=== PATIENT | male | born 1975 ===

== ENCOUNTER 2021-11-16 19:19 | Inpatient (IN) | payer OTHER ==
[~2021-11-16] VITALS: Ht 180.3 cm; Wt 113.4 kg
--- NOTE | 2021-11-16 19:20 | NUR ---
Patient BIB [facility] c/o seizure x2 today. Patient has a hx of epilepsy. Last seizure episode was October 2018. Patient is A/Ox4, no SOB noted. Blood sugar was 92 per report
[2021-11-16] MEDS ORDERED: LEVE500T9 PO (19:27)
--- NOTE | 2021-11-16 19:51 | NUR ---
Patient is A/Ox4
[2021-11-16 20:00] LABS: HEMATOCRIT 38.9 % (36.7-47.1); MEAN CORPUSCULAR VOLUME 78.5 fL (73.0-96.2); PLATELET COUNT (AUTO) 231 K/uL (152-348)
[2021-11-16 20:05] LABS: BILIRUBIN,DIRECT 0.2 mg/dL (0.0-0.2); BILIRUBIN,TOTAL 0.7 mg/dL (0.2-1.0); CREATININE 0.9 mg/dL (0.6-1.3); TOTAL PROTEIN, SERUM 6.9 g/dL (6.4-8.2)
[2021-11-16] MEDS ORDERED: MAG HYDROX/AL HYDROX/SIMETH 30 ML LIQUID UDC PO ONE (20:15)
[2021-11-16] MEDS ORDERED: LIDOCAINE VISCUS 2% 15 ML UDC MM ONE (20:15)
[2021-11-16] MEDS: MAGNESIUM SULFATE/D5W 100 ML IV SCH ×4 (20:16→21:27)
[2021-11-16] MEDS ORDERED: MAG HYDROX/AL HYDROX/SIMETH 30 ML LIQUID UDC ONE (20:16)
[2021-11-16] MEDS ORDERED: LIDOCAINE VISCUS 2% 15 ML UDC ONE (20:16)
[2021-11-16] MEDS ORDERED: MAGNESIUM SULFATE/D5W 400 ML ONE (20:23)
[2021-11-16] MEDS ORDERED: IV NS 1000 ML 1,000 ML IV PRN (20:45)
[2021-11-16] MEDS ORDERED: levETIRAcetam 250 MG TABLET ONE (21:41)
[2021-11-16] MEDS ORDERED: DESMOPRESSIN NS SCH (21:45)
[2021-11-16] MEDS ORDERED: levETIRAcetam 250 MG TABLET PO ONE (21:45)
--- NOTE | 2021-11-16 22:50 | NUR ---
called [facility]. Dr Bowen giving report to Dr Prieto
[2021-11-16] MEDS ORDERED: DESM10SP2 NS (22:54)
[2021-11-16] MEDS ORDERED: FLUO20TA28 PO (23:04)
[2021-11-16] MEDS ORDERED: LISI10TA29 PO (23:04)
[2021-11-16] MEDS ORDERED: SIMV-46 PO (23:04)
[2021-11-16] MEDS ORDERED: PYRI-6 PO (23:04)
--- NOTE | 2021-11-16 23:29 | NUR ---
report given to Satinder
--- NOTE | 2021-11-16 23:30 | NUR ---
patient will go to TELE room 306
--- NOTE | 2021-11-16 23:38 | NUR ---
housekeeper nanny took patient upstairs in room 306 via wheelchair
--- NOTE | 2021-11-16 23:38 | NUR ---
Pt. admitted to Tele room 306 , under care of Dr. Prieto Belongs List completed
[2021-11-17] VITALS (7 sets, daily range): BP systolic 11–188; BP diastolic 67–80
[2021-11-17] MEDS ORDERED: IV NS 1000 ML 1,000 ML IV PRN
[2021-11-17] MEDS ORDERED: hydrALAZINE HCL 25 MG TABLET PO PRN
[2021-11-17] MEDS ORDERED: ZOLPIDEM 5 MG TABLET PO PRN
[2021-11-17] MEDS ORDERED: ONDANSETRON 4 MG/2 ML VIAL IV PRN
[2021-11-17] MEDS ORDERED: CALCIUM CARBONATE 500 MG TAB.CHEW PO PRN (00:15)
[2021-11-17] MEDS ORDERED: MAG HYDROX/AL HYDROX/SIMETH 30 ML LIQUID UDC PO PRN (00:15)
[2021-11-17] MEDS: ACETAMINOPHEN 325 MG TABLET PO PRN ×3 (00:43→19:07)
[2021-11-17] MEDS ORDERED: LORAZEPAM 2 MG/1 ML VIAL IV PRN (00:45)
[2021-11-17] MEDS: PANTOPRAZOLE SODIUM 40 MG TABLET.DR PO SCH (06:12)
[2021-11-17 06:30] LABS: HEMATOCRIT 36.5 % (36.7-47.1); MEAN CORPUSCULAR HEMOGLOBIN 29.5 uug (23.8-33.4); MEAN CORPUSCULAR VOLUME 78.1 fL (73.0-96.2); PLATELET COUNT (AUTO) 223 K/uL (152-348)
[2021-11-17 07:22] LABS: BILIRUBIN,TOTAL 0.7 mg/dL (0.2-1.0); CREATININE 0.8 mg/dL (0.6-1.3); MAGNESIUM 1.9 mg/dL (1.8-2.4); PHOSPHOROUS 3.1 mg/dL (2.5-4.9); POTASSIUM 3.7 mmol/L (3.5-5.1); TOTAL PROTEIN, SERUM 6.2 g/dL (6.4-8.2)
[2021-11-17] MEDS ORDERED: IV SODIUM CHLORIDE 3% 500 ML IV PRN ×2 (07:30→16:30)
--- NOTE | 2021-11-17 07:30 | NUR ---
Awake, alert, oriented x 4. Reports of headache. IVF Infusing. Tele SR.
[2021-11-17 08:21] LABS: THYROID STIMULATING HORMONE 1.701 mIU/mL (0.358-3.740)
--- NOTE | 2021-11-17 08:27 | NUR ---
Na 122; IVF changed to Sodium 3% as ordered. Tylenol given for headache.
[2021-11-17] MEDS ORDERED: levETIRAcetam 500 MG TABLET PO SCH (09:00)
--- NOTE | 2021-11-17 11:30 | NUR ---
Hospitalist seen and examined patient, explained plan of care
--- NOTE | 2021-11-17 14:00 | NUR ---
3% SODIUM CHLORIDE RATE INCREASED TO 35 ML. LATEST SODIUM 120.
[2021-11-17 15:20] LABS: CREATININE 0.9 mg/dL (0.6-1.3); POTASSIUM 3.8 mmol/L (3.5-5.1)
--- NOTE | 2021-11-17 15:35 | NUR ---
PATIENT HAD SEIZURE AT 1535 THAT LASTED 35-45 SECONDS. LORAZEPAM [address] IV PUSH. [address] JAHAIRA GEORGE.
--- NOTE | 2021-11-17 16:07 | NUR ---
neurologist informed of seizure episode with orders to adjust dose of Keppra. Will continue to monitor patient.
[2021-11-17 17:05] LABS: *CHLORIDE RNDM,URINE 121 mmol/L (100-250); *POTASSIUM RNDM,URINE 22 mmol/L (25-125)
--- NOTE | 2021-11-17 17:41 | NUR ---
PATIENT ALERT AND ORIENTED X4. EATING DINNER. NOT IN DISTRESS. TELE SR 75. SODIUM 3% AT 35ML PER HOUR INFUSING. SEIZURE PRECAUTIONS REINFORCED.
--- NOTE | 2021-11-17 19:58 | NUR ---
Received patient in bed with at bedside. AAOX4. Sinus Rhythm on tele with HR of 74bpm. IV access patent and intact running 3% at 35cc/hr. Seizure Precautions in placed. Will continue to monitor. Addendum: 11/18/21 at 2104 by RON SANTAMARIA RN running 3% Nacl at 35cc/hr.
[2021-11-17] MEDS: levETIRAcetam 500 MG TABLET PO SCH (20:11)
--- NOTE | 2021-11-17 20:30 | NUR ---
Patient's neurologist Dr. Post had requested for a Levetiracetam level draw, since normal dose of Keppra was increased from 500mg to 1500mg. Dr. Navarro notified and agreed to put in the order.
[2021-11-18 00:45] VITALS: BP 115/68
[2021-11-18 04:33] VITALS: BP 123/73
--- NOTE | 2021-11-18 05:36 | NUR ---
Patient slept through the night. No seizures noted. Seizure precautions maintained. Sinus rhythm with episodes of sinus angeles on telemonitor. No acute distress noted at this time. Will endorse to day shift.
[2021-11-18] MEDS: PANTOPRAZOLE SODIUM 40 MG TABLET.DR PO SCH (06:26)
[2021-11-18 06:44] LABS: MEAN CORPUSCULAR HEMOGLOBIN 29.2 uug (23.8-33.4); MEAN CORPUSCULAR VOLUME 79.8 fL (73.0-96.2); PLATELET COUNT (AUTO) 207 K/uL (152-348)
[2021-11-18 06:57] LABS: CREATININE 0.9 mg/dL (0.6-1.3); MAGNESIUM 1.8 mg/dL (1.8-2.4); PHOSPHOROUS 2.1 mg/dL (2.5-4.9); POTASSIUM 4.4 mmol/L (3.5-5.1); URIC ACID 4.3 mg/dL (3.5-7.2)
[2021-11-18 07:39] LABS: THYROID STIMULATING HORMONE 1.979 mIU/mL (0.358-3.740)
[2021-11-18] MEDS: levETIRAcetam 500 MG TABLET PO SCH ×2 (08:43→20:39)
[2021-11-18 11:18] VITALS: BP 133/85
--- NOTE | 2021-11-18 13:55 | NUR ---
RECEIVED A CALL FRON LETITIA DESIGN ENGINEERING TECHNICIAN STATED THAT DR LLOYD WANTS TO START PATIENT ON 3 PERCENT NS FOR 5 HOURS AND NOTED.
--- NOTE | 2021-11-18 14:00 | NUR ---
DR NIETO NEUROLOGIST HERE TO SEE AND VISIT PATIENT WITH NO NEW ORDERS AT THIS TIME.
[2021-11-18] MEDS ORDERED: IV SODIUM CHLORIDE 3% 500 ML IV PRN (15:00)
[2021-11-18] MEDS ORDERED: NEUTRA PHOS PACKET PO ONE (15:45)
[2021-11-18 15:53] VITALS: BP 129/72
--- NOTE | 2021-11-18 18:00 | NUR ---
NO SEIZURE ACTIVITIES AT THIS TIME REMAIN ON 3 PERCENT SALINE ORDERED PHOS LEVEL IS 2.1 WITH NEUTROPHOS REPLACEMENT ORDERED.WILL CONTINUE TO OBSERVE.
--- NOTE | 2021-11-18 19:42 | NUR ---
Received patient in bed. AAOX4. When asked if he remembers that he had a seizure yesterday afternoon, patient stated that he doesn't remember. Currently SR on telemonitor. Patient denies dizziness, SOB or chest pain. IV access patent and intact running 40ml/hr over 5 hours of 3% N.S. 200ml to be infused. Safety and seizure precautions in place. Will continue to monitor. Addendum: 11/18/21 at 2104 by RON SANTAMARIA RN 3% NaCl running 40ml/hr to run for 5 hours.
[2021-11-18 20:15] VITALS: BP 135/69
[2021-11-19 00:40] VITALS: BP 122/56
[2021-11-19 04:47] VITALS: BP 116/56
[2021-11-19] MEDS: PANTOPRAZOLE SODIUM 40 MG TABLET.DR PO SCH (06:11)
[2021-11-19 06:15] LABS: HEMATOCRIT 35.9 % (36.7-47.1); MEAN CORPUSCULAR VOLUME 78.4 fL (73.0-96.2); PLATELET COUNT (AUTO) 198 K/uL (152-348)
[2021-11-19 06:29] LABS: MAGNESIUM 1.6 mg/dL (1.8-2.4); PHOSPHOROUS 2.6 mg/dL (2.5-4.9); POTASSIUM 4.4 mmol/L (3.5-5.1)
--- NOTE | 2021-11-19 06:39 | NUR ---
Patient slept through the night, with no seizure activity noted. Sinus rhythm - sinus bradycardia on telemonitor with HR of 56bpm. No acute distress noted at this time. Advised patient to collect midstream urine for lab urine osmolality. Safety and seizure precautions maintained. Will endorse to day.
--- NOTE | 2021-11-19 07:30 | NUR ---
RECEIVED PATIENT IN BED AWAKE ALERT AND ORIENTED DENIES PAIN OR DISCOMFORTS AT THIS TIME NO SEIZURE ACTIVITIES NOTED AT THIS TIME SEIZURE PRECAUTIONS OBSERVED CALL LIGHTS AND PERSONAL BELONGINGS ARE WITHIN EASY REACH WILL CONTINUE TO OBSERVE.
[2021-11-19] MEDS: levETIRAcetam 500 MG TABLET PO SCH ×2 (08:32→20:10)
[2021-11-19] MEDS ORDERED: MAGNESIUM OXIDE 400 MG TABLET PO ONE (11:00)
[2021-11-19 11:52] VITALS: BP 138/75
--- NOTE | 2021-11-19 12:24 | NUR ---
MAG LEVEL IS 1.6 WITH MAGNESSIUM REPLACEMENTS AND NOTED.
--- NOTE | 2021-11-19 13:11 | NUR ---
PATIENT SEEN AND EXAMINED BY GUTIERREZ MAY WITH NEW ORDERS AND NOTED.
[2021-11-19] MEDS: SODIUM CHLORIDE 1,000 MG TABLET PO SCH ×2 (13:35→17:33)
[2021-11-19] MEDS: FUROSEMIDE 40 MG/4 ML VIAL IV SCH (13:35)
[2021-11-19 16:37] VITALS: BP 135/86
[2021-11-19] MEDS ORDERED: IV NS 1000 ML 1,000 ML IV PRN (18:00)
--- NOTE | 2021-11-19 18:47 | NUR ---
DR MOSQUERAISH HERE TO SEE PATIENT AND IS TALKING WITH PATIENT AND HIS ON THE PHONE NO NEW ORDERS AT THIS TIME.
[2021-11-19] MEDS ORDERED: IV SODIUM CHLORIDE 3% 500 ML IV PRN (19:00)
--- NOTE | 2021-11-19 19:15 | NUR ---
Received patient in bed. AAOX4. No acute distress noted at this time. Safety and Seizure precautions in place. Will continue to monitor.
[2021-11-19] MEDS ORDERED: IV SODIUM CHLORIDE 3% 500 ML IV ONE (20:11)
[2021-11-19 20:20] VITALS: BP 141/81
[2021-11-19] MEDS ORDERED: SIMVASTATIN 20 MG TABLET PO SCH (21:00)
[2021-11-20 00:08] VITALS: BP 139/76
--- NOTE | 2021-11-20 04:20 | NUR ---
3% Sodium Chloride at 40ml/hr to run for 6 hours finished. Total of 240ml infused.
[2021-11-20 04:27] VITALS: BP 129/68
[2021-11-20 06:04] LABS: HEMATOCRIT 38.2 % (36.7-47.1); MEAN CORPUSCULAR HEMOGLOBIN 29.4 uug (23.8-33.4); MEAN CORPUSCULAR VOLUME 78.7 fL (73.0-96.2); PLATELET COUNT (AUTO) 216 K/uL (152-348)
[2021-11-20 06:23] LABS: MAGNESIUM 1.8 mg/dL (1.8-2.4); PHOSPHOROUS 3.6 mg/dL (2.5-4.9); POTASSIUM 4.9 mmol/L (3.5-5.1)
[2021-11-20] MEDS: PANTOPRAZOLE SODIUM 40 MG TABLET.DR PO SCH (06:26)
--- NOTE | 2021-11-20 06:43 | NUR ---
Patient slept intermittently through the night, with frequent visits to the restroom. No seizures noted. No acute distress noted at this time. Safety and seizure precautions maintained.
--- NOTE | 2021-11-20 07:30 | NUR ---
DR LLOYD HERE TO SEE PATIENT AND I GAVE HIM PATIENTS PHONE NUMBER TO CALL AND INFORM HER THE PLAN OF CARE NO NEW ORDERS AT THIS TIME PATIENT IS AWAKE ALERT AND ORIENTED DENIES DISCOMFORTS NO SEIZURE ACTIVITIES AT THIS TIME CALL LIGHTS AND PERSONAL BELONGINGS ARE WITHIN EASY REACH WILL CONTINUE TO OBSERVE.
[2021-11-20] MEDS: SODIUM CHLORIDE 1,000 MG TABLET PO SCH ×2 (08:43→12:47)
[2021-11-20] MEDS: levETIRAcetam 500 MG TABLET PO SCH (08:43)
[2021-11-20] MEDS: FUROSEMIDE 40 MG/4 ML VIAL IV SCH (08:44)
[2021-11-20] MEDS ORDERED: LISINOPRIL 10 MG TABLET PO SCH (09:00)
[2021-11-20] MEDS ORDERED: FLUOXETINE HCL 20 MG CAPSULE PO SCH (09:00)
--- NOTE | 2021-11-20 09:29 | NUR ---
PATIENT SEEN AND EXAMINED BY LETITIA CRESPO WITH DISCHARGE PLANNING AT THIS TIME PATIENTS IS AT THE BEDSIDE.
[2021-11-20] MEDS ORDERED: LEVE1000 PO (09:51)
[2021-11-20 11:44] VITALS: BP 119/70
--- NOTE | 2021-11-20 12:50 | NUR ---
PATIENT DISCHARGED PICKED UP BY HIS [facility] IN SATISFACTORY CONDITION WITH DISCHARGE INSTRUCTIONS SUCH TO DECREASE KEPPRA TO 1000 MG UNTIL SEEN BY THE NEUROLOGIST THIS WEEK ALSO NO STRENOUS EXERCISES UNTIL SEEN BY THE FELLER MACHINE OPERATOR ALSO TO STOP TAKING THE DESMOPRESSIN AND HAVE THE FELLER MACHINE OPERATOR TO DECIDE AND PATIENT AND HIS EXPRESSED UNDERSTAND ASSISTED OUT ON THE W/CHAIR TO HIS WIFES CAR WITH ALL HIS PERSONAL BELONGINGS.
== END 2021-11-20 12:50 | disposition home or self-care (01) | DRG 645 ==
LOC: EDBD 19:22 → ER 19:22 → TELE3 23:12
PROVIDERS: ADMIT Registered Nurse; ATTEND Registered Nurse
DX: E22.2 Syndrome of inappropriate secretion of antidiuretic hormone (principal); G40.909 Epilepsy, unspecified, not intractable, without status epilepticus; T38.895A Adverse effect of other hormones and synthetic substitutes, initial encounter; Y92.019 Unspecified place in single-family (private) house as the place of occurrence of the external cause; E66.01 Morbid (severe) obesity due to excess calories; E83.42 Hypomagnesemia; E11.9 Type 2 diabetes mellitus without complications; Z68.34 Body mass index [BMI] 34.0-34.9, adult; E23.2 Diabetes insipidus; Z20.822 Contact with and (suspected) exposure to COVID-19
CPT/HCPCS: 36415; 80299; 82533; 83735; 83935; 84100; 84133; 84295; 84300; 84443; 84550; 85025; 93005; A4663; G0378; J1940; J2060; J3475; J7040